=== PATIENT | male | born 1945 | race Caucasian/White ===

== ENCOUNTER 2024-05-14 04:35 | Emergency (ER) | payer OTHER, MEDICAID ==
[~2024-05-14] VITALS: Ht 160 cm; Wt 68.0 kg
[2024-05-14 04:44] VITALS: BP 190/78; PULSE 54; RESP 16; TEMP 98.4; O2SAT 97
--- NOTE | 2024-05-14 04:44 | NUR ---
PT AMBULATED TO ER BED 09
--- NOTE | 2024-05-14 04:57 | NUR ---
XRAY AT BEDSIDE
[2024-05-14] MEDS ORDERED: CARV6.25 PO (05:25)
[2024-05-14] MEDS ORDERED: OMEP40EC23 PO (05:25)
[2024-05-14] MEDS ORDERED: LISI-953 PO (05:25)
[2024-05-14] MEDS ORDERED: SITA50TA3 PO (05:25)
[2024-05-14] MEDS ORDERED: ASPI-1822 PO (05:25)
[2024-05-14] MEDS ORDERED: ATOR40TA PO (05:25)
--- NOTE | 2024-05-14 05:26 | NUR ---
noted on patient's elevated bp, no new order at the moment.
[2024-05-14 05:28] LABS: BASOPHILS # (AUTO) 0.1 K/uL (0.00-0.22); BASOPHILS % (AUTO) 0.7 % (0.0-2.0); EOSINOPHILS # (AUTO) 0.3 K/uL (0-0.4); EOSINOPHILS % (AUTO) 2.5 % (0.0-4.0); HEMATOCRIT 38.5 % (36-52); HEMOGLOBIN 13.1 g/dL (12.0-18.0); LYMPHOCYTES # (AUTO) 3.1 K/uL (2.0-11.5); LYMPHOCYTES % (AUTO) 24.7 % (20.5-51.1); MEAN CORPUSCULAR HEMOGLOBIN 32 pg (27-31); MEAN CORPUSCULAR HGB CONC 34 g/dL (33-37); MEAN CORPUSCULAR VOLUME 93.9 fL (80-94); MONOCYTES # (AUTO) 1.1 K/uL (0.8-1.0); NEUTROPHILS # (AUTO) 7.9 K/uL (1.8-7.7); NEUTROPHILS % (AUTO) 63.1 % (42.2-75.2); PLATELET COUNT (AUTO) 211 K/uL (140-450); RED CELL DISTRIBUTION WIDTH 14.2 % (11.6-13.7); WHITE BLOOD COUNT (AUTO) 12.4 K/uL (4.8-10.8)
--- NOTE | 2024-05-14 05:32 | NUR ---
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
[2024-05-14 05:40] LABS: ANION GAP 10.5 (8-16); CALCIUM 8.9 mg/dL (8.5-10.1); CARBON DIOXIDE 25.3 mmol/L (21-32); CHLORIDE 106 mmol/L (98-107); CREATININE 1.8 mg/dL (0.6-1.3); GLUCOSE 73 mg/dL (74-106); POTASSIUM 3.8 mmol/L (3.5-5.1); SODIUM SERUM 138 mmol/L (136-145); UREA NITROGEN, BLOOD 28 mg/dL (7-18)
--- NOTE | 2024-05-14 06:15 | NUR ---
examing patient at bedside, noted on high blood pressure
--- NOTE | 2024-05-14 06:30 | NUR ---
patient stated he is compliant to meds, and denied chest pain at this moment. stated patient can take his routine bp meds at home.
[2024-05-14 06:37] VITALS: BP 190/78; PULSE 52; RESP 16; TEMP 98.4; O2SAT 98
--- NOTE | 2024-05-14 06:37 | NUR ---
Patient does not wish to proceed with medical care recommended by . Patient given information related to possible complications, up to and including , which could occur as a result of leaving hospital at this time. Patient verbalizes understanding of risks involved leaving against medical advice. Patient has signed AMA form.
== END 2024-05-14 06:37 | disposition left against medical advice (07) ==
LOC: MED 04:35
DX: R07.9 Chest pain, unspecified (principal); I25.2 Old myocardial infarction; E11.9 Type 2 diabetes mellitus without complications; I10 Essential (primary) hypertension; Z90.49 Acquired absence of other specified parts of digestive tract; Z98.890 Other specified postprocedural states; Z79.899 Other long term (current) drug therapy; Z79.82 Long term (current) use of aspirin
CPT/HCPCS: 36415; 71045; 80048; 83880; 84484; 85025; 93005; 99285; Q0092